=== PATIENT | male | born 1975 | race Caucasian/White ===

== ENCOUNTER 2019-02-10 09:31 | Observation (INO) | payer BC ==
[~2019-02-10] VITALS: Ht 172.7 cm; Wt 70.1 kg
[2019-02-10 10:40] LABS: ALBUMIN 4.5 g/dL (3.5-5.0)
[2019-02-10 10:41] LABS: CALCIUM 9.4 mg/dL (8.3-10.5)
[2019-02-10 10:44] LABS: TOTAL BILIRUBIN 0.3 mg/dL (0.2-1.2)
[2019-02-10 10:51] LABS: URINE WBC 0 /hpf (0-3)
[2019-02-10 11:06] LABS: URINE APPEARANCE CLEAR; URINE BILIRUBIN NEGATIVE (NEGATIVE); URINE BLOOD TRACE (NEGATIVE); URINE COLOR YELLOW; URINE GLUCOSE NEGATIVE (NEGATIVE); URINE KETONE NEGATIVE (NEGATIVE); URINE LEUKOCYTE ESTERASE TRACE (NEGATIVE); URINE MUCUS PRESENT (NOT PRESENT); URINE NITRATE NEGATIVE (NEGATIVE); URINE PROTEIN(semi-quant) 1+ mg/dL (NEGATIVE); URINE UROBILINOGEN NORMAL (NORMAL)
[2019-02-10 11:13] LABS: EOS # 0.1 (0.04-0.40); EOS % 1.3 % (0.0-4.0); HEMATOCRIT 48.5 % (42.0-52.0); HEMOGLOBIN 16.8 g/dL (13.5-18.0); LYMPH# 1.3 (1.50-4.00); MEAN CELL VOLUME 91 fl (78-100); MEAN CORPUSCULAR HEMOGLOBIN 31 pg (27-31); MEAN CORPUSCULAR HGB CONC 35 g/dL (33-37); MEAN PLATELET VOLUME 10.1 fl (7.4-10.4); MONO # 0.7 (0.20-0.80); NEU # 7.7 (1.40-6.50); PLATELET COUNT 255 K/mm3 (130-400); RED BLOOD COUNT 5.35 M/mm3 (4.20-5.60); RED CELL DISTRIBUTION WIDTH 13.1 % (11.5-14.5); WHITE BLOOD COUNT 9.9 K/mm3 (4.8-10.8)
[2019-02-10 13:39] VITALS: BP 126/72
[2019-02-10 14:07] VITALS: BP 126/72
[2019-02-10 15:01] LABS: PROTHROMBIN TIME 10.4 SECONDS (9.0-12.0)
[2019-02-10 15:46] VITALS: BP 117/73
[2019-02-10 18:11] VITALS: BP 112/70
[2019-02-10 20:34] VITALS: BP 116/73
[2019-02-10 22:21] VITALS: BP 110/69
[2019-02-11] VITALS (9 sets, daily range): BP systolic 110–154; BP diastolic 66–97
== END 2019-02-11 17:24 | disposition home or self-care (01) ==
LOC: ED 09:31 → MED/SURG 12:49
PROVIDERS: Nurse Practitioner; ADMIT Nurse Practitioner Primary Care
DX: F10.129 Alcohol abuse with intoxication, unspecified (principal); F17.210 Nicotine dependence, cigarettes, uncomplicated; Z85.47 Personal history of malignant neoplasm of testis; Z90.79 Acquired absence of other genital organ(s); Z80.3 Family history of malignant neoplasm of breast; Z82.49 Family history of ischemic heart disease and other diseases of the circulatory system
CPT/HCPCS: C9113; G0378; J1650; J2060; J3411; J3490; J7030

== ENCOUNTER → 2020-03-23 16:00 | Outpatient (RCR) | payer BC ==
[2019-02-11 16:12] VITALS: BP 151/97
== END | disposition still patient (30) ==
LOC: PT 03-09 15:30
DX: M54.5 Low back pain (principal)